=== PATIENT | male | born 2000 | race Caucasian/White ===

== ENCOUNTER 2025-09-10 13:46 | Emergency (ER) | payer SELFPAY ==
[2025-09-10] MEDS: Diphtheria,Pertussis(Acell),Tetanus Vaccine 0.5 ML Syringe IM ONE (15:06)
== END 2025-09-10 15:20 | disposition home or self-care (01) ==
LOC: MW.ED 13:46
DX: S01.511A Laceration without foreign body of lip, initial encounter (principal); J45.909 Unspecified asthma, uncomplicated; Z79.899 Other long term (current) drug therapy; Z75.3 Unavailability and inaccessibility of health-care facilities; W22.8XXA Striking against or struck by other objects, initial encounter; Z23 Encounter for immunization
CPT/HCPCS: 90471; 90715; 99282-25; 99283